=== PATIENT | female | born 1980 | race Caucasian/White ===

== ENCOUNTER 2016-09-15 11:38 | Outpatient (CLI) | payer OTHER ==
--- NOTE | 2016-09-15 12:52 | DIAGNOSTIC IMAGING REPORT ---
PROCEDURE: XR LUMBAR SPINE 2 OR 3 VIEWS INDICATION: ACUTE MIDLINE LOW BACK PX WITH R SIDED SCIATICA TECHNIQUE: Three views. COMPARISON: None. FINDINGS: Osseous structures and disc spaces are normal. No evidence of an acute process or fracture. Minimal osteophyte formation. IMPRESSION: 1. Negative lumbar spine.
== END 2016-09-15 23:00 ==
LOC: XR SRH 11:38
DX: M54.41 Lumbago with sciatica, right side (principal)